=== PATIENT | female | born 1950 | race Caucasian/White ===

== ENCOUNTER 2022-03-29 08:59 | Emergency (ER) | payer OTHER ==
[2022-03-29 09:24] VITALS: BP 159/86; PULSE 87; RESP 16; TEMP 98.5; BMI 31.6
[2022-03-29] MEDS ORDERED: ALBUTEROL SO4 2.5/IPRATROPIUM 0.5 INH SOL 3 ML VIAL.NEB. NEB ONE (09:39)
[2022-03-29] MEDS: ALBUTEROL SO4 2.5/IPRATROPIUM 0.5 INH SOL 3 ML VIAL.NEB. NEB SCH ×3 (09:48→10:08)
== END 2022-03-29 11:49 | disposition home or self-care (01) ==
LOC: FER 08:59
PROC: 3E0F7GC Introduction of Other Therapeutic Substance into Respiratory Tract, Via Natural or Artificial Opening (ICD-10-PCS; principal; 2022-03-29)
DX: J98.01 Acute bronchospasm (principal); R06.02 Shortness of breath
CPT/HCPCS: 0241U-QW; 71046-TC-FY; 99285-25